=== PATIENT | female | born 1965 | race Caucasian/White ===

== ENCOUNTER → 2020-04-25 | Outpatient (CLI) | payer OTHER ==
[2020-04-26 14:11] LABS: RHEUMATOID ARTHRITIS FACTOR 10.6 IU/mL (0.0-13.9)
== END ==
LOC: RAD 15:39
PROVIDERS: Internal Medicine
DX: M79.641 Pain in right hand (principal); M79.642 Pain in left hand; G89.29 Other chronic pain; Z79.1 Long term (current) use of non-steroidal anti-inflammatories (NSAID)
CPT/HCPCS: 36415; 73130; 80053; 83520; 85652; 86140; 86200; 86431

== ENCOUNTER → 2020-05-26 | Outpatient (CLI) | payer OTHER | LOC: LAB 15:12 | PROVIDERS: Nurse Practitioner Family | DX: M54.5 Low back pain (principal); N18.9 Chronic kidney disease, unspecified; M47.816 Spondylosis without myelopathy or radiculopathy, lumbar region; M47.817 Spondylosis without myelopathy or radiculopathy, lumbosacral region; M48.061 Spinal stenosis, lumbar region without neurogenic claudication; M48.07 Spinal stenosis, lumbosacral region | CPT/HCPCS: 36415; 72100; 80048 ==

== ENCOUNTER → 2021-04-11 | Day surgery (SDC) | payer OTHER ==
[~2021-04-11] MED LIST: ACYCLOVIR800 MG PO; BUPROPION HCL150 M1 PO; BUSPIRONE HCL5 MG PO; COZAAR50 MG PO; DICLOFENAC GEL 1% TOP; HYDROCODON-ACE1 EAC2 PO; HYDROCODON-ACE1 EAC4 PO; HYDROCODONE-AC1 EACH PO; IRON325 M1 PO; LORATADINE10 MG PO; NARCAN4 MG; NEURONTIN800 MG PO; OMEPRAZOLE20 M1 PO; PROVENTIL HFA6.7 GM INH; ROBAXIN 750 MG750 MG PO; SEROQUEL25 MG PO; THALITONE15 MG PO
== END | disposition home or self-care (01) ==
LOC: OR 05:07
PROVIDERS: Orthopaedic Surgery
DX: M65.311 Trigger thumb, right thumb (principal); J45.909 Unspecified asthma, uncomplicated; F31.81 Bipolar II disorder; K52.9 Noninfective gastroenteritis and colitis, unspecified; I12.9 Hypertensive chronic kidney disease with stage 1 through stage 4 chronic kidney disease, or unspecified chronic kidney disease; N18.31 Chronic kidney disease, stage 3a; F40.240 Claustrophobia; J43.9 Emphysema, unspecified; K21.9 Gastro-esophageal reflux disease without esophagitis; N13.30 Unspecified hydronephrosis; E78.5 Hyperlipidemia, unspecified; K64.8 Other hemorrhoids; G43.909 Migraine, unspecified, not intractable, without status migrainosus; D47.2 Monoclonal gammopathy; E66.3 Overweight; Z88.5 Allergy status to narcotic agent; Z88.6 Allergy status to analgesic agent; Z98.51 Tubal ligation status; Z96.0 Presence of urogenital implants; Z87.891 Personal history of nicotine dependence; Z20.822 Contact with and (suspected) exposure to COVID-19
CPT/HCPCS: 80048; J1100; J2250; J2405; J2704; J2765; J3010; J7120

== ENCOUNTER 2021-07-18 18:14 | Emergency (ER) | payer OTHER | END 2021-07-18 23:00 | disposition home or self-care (01) | LOC: ER1 18:14 | DX: M79.605 Pain in left leg (principal); I10 Essential (primary) hypertension; Z87.891 Personal history of nicotine dependence | CPT/HCPCS: 93971; 99283 ==